=== PATIENT | male | born 1975 | race Caucasian/White ===

== ENCOUNTER 2022-04-19 07:23 | Outpatient (CLI) | payer OTHER, SELFPAY | END 2022-04-19 07:24 | disposition home or self-care (01) | LOC: OP CLINIC 07:24 | PROVIDERS: PCP Family Medicine; Visit Provider Surgery | DX: Z12.11 Encounter for screening for malignant neoplasm of colon (principal); K57.30 Diverticulosis of large intestine without perforation or abscess without bleeding | CPT/HCPCS: 45378; 99153; J2250; J3010 ==

== ENCOUNTER 2022-08-09 09:08 | Outpatient (CLI) | payer OTHER, SELFPAY ==
--- NOTE | 2022-08-09 10:00 | CRLHL7_ITS ---
For Patients: As a result of the 21st Century Cures Act, medical imaging exams and procedure reports are released immediately into your electronic medical record. You may view this report before your referring provider. If you have questions, please contact your health care provider. INDICATION: TINNITUS. EARS FEEL CONGESTED. TECHNIQUE: CT of the temporal bones without contrast. Coronal and axial small field of view reconstructions of both temporal bones are included. COMPARISON: MRI brain 02/10/2022 FINDINGS: RIGHT temporal bone: The external auditory canal is widely patent. No EAC stenosis or obstruction. The tympanic membranes are not thickened. The right middle ear is clear. No material is present within the sinus tympani. The ossicles are normal in appearance and location with no erosions or dislocation. The otic capsule is normal in appearance. No sclerosis within the labyrinthine canal. No fistula between the labyrinth and the middle ear. The vestibule and semicircular canals are normal in morphology with no evidence of semicircular canal dehiscence. Normal cochlear morphology with appropriate number of turns. Vestibular aqueduct is normal in size. Facial nerve canal is intact and normal in course/caliber. Petrous apex is normal. Partial opacification of inferior right mastoid air cells noted. The carotid canal and jugular foramen are normal. LEFT temporal bone: External auditory canal cerumen noted. The cerumen is focal and measures 8 millimeters in diameter. The tympanic membranes are not thickened. The left middle ear is clear. No material is present within the sinus tympani. The ossicles are normal in appearance and location with no erosions or dislocation. The otic capsule is normal in appearance. No sclerosis within the labyrinthine canal. No fistula between the labyrinth and the middle ear. The vestibule and semicircular canals are normal in morphology with no evidence of semicircular canal dehiscence. Normal cochlear morphology with appropriate number of turns. Vestibular aqueduct is normal in size. Facial nerve canal is intact and normal in course/caliber. Petrous apex is normal. Trace chronic left mastoid effusion inferiorly. The carotid canal and jugular foramen are normal. OTHER: No fracture or significant degenerative change, lytic or blastic process is demonstrated in the skull base or temporomandibular joints. The imaged intracranial structures are normal in appearance. Orbits are normal. Imaged soft tissue structures are normal in appearance. The paranasal sinuses demonstrate small mucous retention cysts in both maxillary sinuses. IMPRESSION: Left external auditory canal cerumen. Trace chronic left mastoid effusion. Partial opacification of inferior right mastoid air cells. Middle ear cavities are normal. No evidence of cholesteatoma. No dehiscence. Please note that all CT scans at this facility use dose modulation, iterative reconstruction, and/or weight-based dosing when appropriate to reduce radiation dose to as low as reasonably achievable. Dictated by Leoncio Christian MD @ 08/09/2022 11:45:11 AM (Electronically Signed)
== END 2022-08-09 09:09 | disposition home or self-care (01) ==
PROVIDERS: PCP Family Medicine; Visit Provider Otolaryngology
DX: H93.19 Tinnitus, unspecified ear (principal); J32.9 Chronic sinusitis, unspecified
CPT/HCPCS: 70480

== ENCOUNTER 2022-09-01 15:00 | Outpatient (CLI) | payer OTHER, SELFPAY ==
[2022-09-01 14:09] LABS: Cholesterol* 195 mg/dL (90-199); HDL Cholesterol* 49 mg/dL (>=40); LDL Cholesterol Calculated 130 mg/dL (<100); Triglycerides* 81 mg/dL (40-149)
[2022-09-02 16:15] LABS: Alanine Aminotransferase* 33 U/L (4-50)
== END 2022-09-01 15:01 | disposition home or self-care (01) ==
PROVIDERS: PCP Family Medicine; Visit Provider Family Medicine
DX: E78.00 Pure hypercholesterolemia, unspecified (principal)
CPT/HCPCS: 80061; 84460